=== PATIENT | female | born 1975 | race Asian ===

== ENCOUNTER 2023-04-29 10:47 | Emergency (ER) | payer BC ==
[~2023-04-29] VITALS: Ht 162.6 cm; Wt 74.0 kg
[2023-04-29] VITALS (8 sets, daily range): BP systolic 97–109; BP diastolic 63–75
[2023-04-29] MEDS ORDERED: SYNTHROID25 MCG PO (11:02)
[2023-04-29] MEDS ORDERED: ASPIRINCHW 81MG PO (11:03)
[2023-04-29] MEDS ORDERED: STERAPRED5 MG PO ×2 (12:40→13:06)
== END 2023-04-29 12:45 | disposition home or self-care (01) | DRG 831 ==
LOC: ED 10:47
DX: O98.513 Other viral diseases complicating pregnancy, third trimester (principal); U07.1 COVID-19; R05.9 Cough, unspecified; O99.283 Endocrine, nutritional and metabolic diseases complicating pregnancy, third trimester; E03.9 Hypothyroidism, unspecified; O09.523 Supervision of elderly multigravida, third trimester; Z3A.31 31 weeks gestation of pregnancy

== ENCOUNTER 2024-06-25 13:30 | Emergency (ER) | payer OTHER ==
[~2024-06-25] VITALS: Ht 162.6 cm; Wt 64.4 kg
[2024-06-25] VITALS (18 sets, daily range): BP systolic 101–132; BP diastolic 61–93
[~2024-06-25 13:30] MED LIST: ASPIRINCHW 81MG PO; STERAPRED5 MG PO; SYNTHROID25 MCG PO
[2024-06-25] MEDS ORDERED: SODIUM CHLORIDE 0.9% 1,000 ML IV ONE (13:45)
[2024-06-25 14:09] LABS: BASO% 0.3 % (0-3); EOS% 0.5 % (0-8); HEMATOCRIT 39.3 % (37.0-47.0); HEMOGLOBIN 13.2 g/dl (12.0-16.0); IMMATURE GRANULOCYTES 0.2 % (0.0-5.0); MEAN CELL VOLUME 93.3 fL CALC (80.0-100.0); MEAN CORPUSCULAR HGB 31.4 pG CALC (26.0-32.0); MEAN CORPUSCULAR HGB CONC 33.6 g/dL CAL (32.0-36.0); MONO% 5.4 % (2-13); NEUT# 3.91 thou/uL (2.00-7.15); NEUT% 65.6 % (42-76); RED BLOOD COUNT 4.21 mill/uL (4.20-5.60); RED CELL DISTRI WIDTH 12.1 % (11.5-15.5)
[2024-06-25 14:16] LABS: ALBUMIN 4.9 g/dL (3.2-5.0); ALKALINE PHOSPHATASE 64 u/l (38-126); ANION GAP 12 (6-22 (CALC)); BILIRUBIN, TOTAL 1.3 mg/dL (0.02-1.3); BUN 12 mg/dL (7-17); BUN/CREATININE RATIO 20 (12-20 (CALC)); CARBON DIOXIDE 22 mmol/l (22-30); CHLORIDE 109 mmol/l (95-108); CREATININE 0.6 mg/dL (0.5-1.0); ESTIMATED GFR 110 ML/MIN (>=90 (CALC)); POTASSIUM 4.2 mmol/l (3.5-5.1); SGOT/AST 32 u/l (14-36); SODIUM 139 mmol/l (137-146); TOTAL PROTEIN 8.8 g/dL (6.3-8.2)
[2024-06-25] MEDS ORDERED: MECLIZINE 2525 MG PO ×2 (17:40→17:52)
[2024-06-25] MEDS ORDERED: VISTARIL 50MG C50 M1 PO ×2 (17:40→17:52)
== END 2024-06-25 17:55 | disposition home or self-care (01) | DRG 884 ==
LOC: ED 13:30
PROVIDERS: Family Medicine
DX: R45.1 Restlessness and agitation (principal); R42 Dizziness and giddiness; E03.9 Hypothyroidism, unspecified